=== PATIENT | male | born 1945 | race Caucasian/White ===

== ENCOUNTER 2021-04-19 08:52 | Outpatient (CLI) | payer MEDICARE | END 2021-04-19 08:53 | disposition home or self-care (01) | LOC: BICRAD 08:52 | PROVIDERS: ATTEND Internal Medicine Rheumatology | DX: M25.541 Pain in joints of right hand (principal); M19.041 Primary osteoarthritis, right hand ==

== ENCOUNTER 2021-06-14 07:05 | Outpatient (CLI) | payer MEDICARE | END 2021-06-14 07:06 | disposition home or self-care (01) | LOC: BICULT 07:05 | PROVIDERS: ATTEND Internal Medicine Nephrology | DX: I12.9 Hypertensive chronic kidney disease with stage 1 through stage 4 chronic kidney disease, or unspecified chronic kidney disease (principal); N18.30 Chronic kidney disease, stage 3 unspecified | CPT/HCPCS: 76770; 93975 ==

== ENCOUNTER 2022-09-29 13:20 | Outpatient (CLI) | payer MEDICARE ==
[2022-09-29 14:06] LABS: Bilirubin Neg (Negative); Blood, Urine Negative (Negative); Clarity Clear (Clear); Glucose, Urine (Dipstick) Normal (Negative); Ketone, Urine Negative (Negative); Leukocyte Negative (Negative); Nitrite Negative (Negative); Protein, Urine (Dipstick) Negative (Neg-Trace); Urobilinogen Normal mg/dL (Less than 2)
[2022-09-29 14:13] LABS: Hemoglobin 12.6 g/dL (13.5-17.5); Mean Corpuscular HGB CONC 32.5 g/dL (32.0-36.0); Mean Corpuscular Hemoglobin 31.8 pg (27.0-33.0); Mean Platelet Volume 10.4 fl (7.4-10.4); Platelet Count 203 10x3/uL (150-450); RBC Distribution Width 13.3 % (11.5-14.5); Red Blood Cell (RBC) Count 3.96 10x6/uL (4.32-5.72)
[2022-09-29 14:27] LABS: Bacteria/HPF None Seen HPF (None Seen); RBC/HPF 0-3 HPF (0-3); Squamous Epithelial None Seen HPF (0-3); WBC/HPF 0-3 HPF (0-3)
[2022-09-29 14:27] LABS: INR-International Normal Ratio 0.9; PTT 23.1 sec (22.0-33.0); Prothrombin Time 10.1 sec (9.5-12.1)
[2022-09-29 15:25] LABS: Anion Gap 13 mmol/L (10-20); BUN (Urea Nitrogen) 20 mg/dL (8.4-25.7); Calc. Creatinine Clearance 0 mL/min (70-130); Calcium 9.3 mg/dL (7.8-10.44); Carbon Dioxide 27 mmol/L (23-31); Chloride 107 mmol/L (98-107); Estimated GFR 46; Glucose 94 mg/dL (83-110); Potassium 4.1 mmol/L (3.5-5.1); Sodium 143 mmol/L (136-145)
== END 2022-09-29 13:21 | disposition home or self-care (01) ==
LOC: LABBT 13:20
PROVIDERS: ATTEND Urology
DX: Z01.818 Encounter for other preprocedural examination (principal); C61 Malignant neoplasm of prostate; N18.32 Chronic kidney disease, stage 3b; N40.1 Benign prostatic hyperplasia with lower urinary tract symptoms; N52.9 Male erectile dysfunction, unspecified; R39.14 Feeling of incomplete bladder emptying; Z92.3 Personal history of irradiation
CPT/HCPCS: 80048; 81001; 85027; 85610; 85730; 87086; 93005; 93010

== ENCOUNTER 2022-10-12 07:40 | Day surgery (SDC) | payer MEDICARE ==
[2022-10-10 12:54] VITALS: BMI 32.2
[2022-10-12] MEDS ORDERED: Levofloxacin 500 mg/D5W 100 ml Premix Bag ONE (08:59)
[2022-10-12] MEDS ORDERED: FENTANYL 50 MCG/ML 1 ML VIAL ONE (09:22)
[2022-10-12] MEDS ORDERED: Iopamidol 30 ML ONE (09:23)
[2022-10-12] MEDS ORDERED: Lidocaine 1% PF 5 ML VIAL ONE (09:52)
[2022-10-12] MEDS ORDERED: NEOSTIGMINE 3 MG/3 ML SYR 3 MG/3 ML SYRINGE ONE (09:52)
[2022-10-12] MEDS ORDERED: Ondansetron PF 4 MG/2 ML Vial ONE (09:52)
[2022-10-12] MEDS ORDERED: PROPOFOL 200 MG/20 ML VIAL ONE (09:52)
[2022-10-12] MEDS ORDERED: Phenylephrine 10 MG/ML VIAL ONE (09:52)
[2022-10-12] MEDS ORDERED: Rocuronium Bromide 10 MG/ML (10ML VIAL) ONE (09:52)
[2022-10-12] MEDS ORDERED: ePHEDrine Sulfate 50 MG/10 ML VIAL ONE (09:52)
[2022-10-12] MEDS ORDERED: GLYCOPYRROLATE/PF 0.2 MG/ML VIAL ONE (09:52)
[2022-10-12] MEDS ORDERED: Oxybutynin 5 MG TAB ONE (11:07)
[2022-10-12] MEDS ORDERED: Phenazopyridine HCl 100 MG TAB ONE ×2 (11:08→11:13)
== END 2022-10-12 12:45 | disposition home or self-care (01) ==
LOC: SDC 07:40
PROVIDERS: ATTEND Urology
PROC: 0T768DZ Dilation of Right Ureter with Intraluminal Device, Via Natural or Artificial Opening Endoscopic (ICD-10-PCS; principal; 2022-10-12)
PROC: 0TBB8ZZ Excision of Bladder, Via Natural or Artificial Opening Endoscopic (ICD-10-PCS; 2022-10-12)
DX: C67.2 Malignant neoplasm of lateral wall of bladder (principal); N40.1 Benign prostatic hyperplasia with lower urinary tract symptoms; R39.14 Feeling of incomplete bladder emptying; N13.8 Other obstructive and reflux uropathy; N32.89 Other specified disorders of bladder; I12.9 Hypertensive chronic kidney disease with stage 1 through stage 4 chronic kidney disease, or unspecified chronic kidney disease; N18.32 Chronic kidney disease, stage 3b; E03.9 Hypothyroidism, unspecified; E78.00 Pure hypercholesterolemia, unspecified; M10.9 Gout, unspecified; N52.9 Male erectile dysfunction, unspecified; E66.9 Obesity, unspecified; Z68.32 Body mass index [BMI] 32.0-32.9, adult; Z85.46 Personal history of malignant neoplasm of prostate; Z92.3 Personal history of irradiation; Z79.82 Long term (current) use of aspirin; Z79.890 Hormone replacement therapy; Z79.899 Other long term (current) drug therapy
CPT/HCPCS: 52235; 52332; 74420; 86850; 86900; 86901; J3010; 88305; A4311; C2617; J1956; J2370; J2405; J2704; J3490; Q9967

== ENCOUNTER 2023-02-14 11:50 | Outpatient (CLI) | payer MEDICARE ==
[2023-02-14 12:57] LABS: Bilirubin Neg (Negative); Blood, Urine 50 (Negative); Clarity Cloudy (Clear); Glucose, Urine (Dipstick) Normal (Negative); Ketone, Urine Negative (Negative); Leukocyte 500 (Negative); Nitrite Negative (Negative); Protein, Urine (Dipstick) 100 mg/dl (Neg-Trace); Urobilinogen Normal mg/dL (Less than 2)
[2023-02-14 13:10] LABS: Anion Gap 18 mmol/L (10-20); BUN (Urea Nitrogen) 20 mg/dL (8.4-25.7); Calc. Creatinine Clearance 0 mL/min (70-130); Calcium 9.5 mg/dL (7.8-10.44); Carbon Dioxide 25 mmol/L (23-31); Chloride 103 mmol/L (98-107); Estimated GFR 46; Glucose 97 mg/dL (83-110); Potassium 4.4 mmol/L (3.5-5.1); Sodium 142 mmol/L (136-145)
[2023-02-14 13:12] LABS: PTT 22.9 sec (22.0-33.0); Prothrombin Time 10.8 sec (9.5-12.1)
[2023-02-14 13:14] LABS: Hemoglobin 13.5 g/dL (13.5-17.5); Mean Corpuscular HGB CONC 32.5 g/dL (32.0-36.0); Mean Corpuscular Hemoglobin 31.3 pg (27.0-33.0); Mean Corpuscular Volume 96.3 fl (81.2-95.1); Mean Platelet Volume 10.5 fl (7.4-10.4); Platelet Count 204 10x3/uL (150-450); RBC Distribution Width 13.7 % (11.5-14.5); Red Blood Cell (RBC) Count 4.31 10x6/uL (4.32-5.72); White Blood Cell (WBC) Count 7.7 10x3/uL (3.5-10.5)
[2023-02-14 13:18] LABS: Bacteria/HPF 4+ HPF (None Seen); RBC/HPF 0-3 HPF (0-3); Squamous Epithelial 0-3 HPF (0-3); WBC/HPF Greater Than 50 HPF (0-3)
== END 2023-02-14 11:51 | disposition home or self-care (01) ==
LOC: LABBT 11:50
PROVIDERS: ATTEND Urology
DX: Z01.818 Encounter for other preprocedural examination (principal); C67.9 Malignant neoplasm of bladder, unspecified
CPT/HCPCS: 80048; 81001; 85027; 85610; 85730; 87077; 87086; 87186; 93005; 93010

== ENCOUNTER 2023-03-01 05:45 | Day surgery (SDC) | payer MEDICARE ==
[2023-02-14 12:22] VITALS: BMI 31.6
[2023-03-01] MEDS ORDERED: LevoFLOXacin 500 mg/D5W 100 ML BAG ONE (06:44)
[2023-03-01] MEDS ORDERED: Dexmedetomidine 200 MCG/2 ML VIAL ONE (06:45)
[2023-03-01] MEDS ORDERED: fentaNYL PF 100 MCG/2 ML SYRINGE ONE (06:45)
[2023-03-01] MEDS ORDERED: fentaNYL 50 mcg/mL 1 mL Vial ONE (06:45)
[2023-03-01] MEDS ORDERED: Ondansetron PF 4 MG/2 ML Vial ONE (07:30)
[2023-03-01] MEDS ORDERED: Glycopyrrolate 0.2 MG/ML 5 ML SYRINGE ONE (07:30)
[2023-03-01] MEDS ORDERED: Lidocaine 1% PF 5 ML VIAL ONE (07:30)
[2023-03-01] MEDS ORDERED: Rocuronium Bromide 10 MG/ML (10ML VIAL) ONE (07:30)
[2023-03-01] MEDS ORDERED: PROPOFOL 200 MG/20 ML VIAL ONE (07:30)
[2023-03-01] MEDS ORDERED: NEOSTIGMINE 3 MG/3 ML SYR 3 MG/3 ML SYRINGE ONE (07:30)
[2023-03-01] MEDS ORDERED: Dexamethasone 20 MG/5 ML VIAL ONE (07:30)
[2023-03-01] MEDS ORDERED: Iopamidol 30 ML ONE (08:49)
[2023-03-01] MEDS ORDERED: Oxybutynin 5 MG TAB ONE (09:14)
[2023-03-01] MEDS ORDERED: Phenazopyridine HCl 100 MG TAB ONE (09:14)
== END 2023-03-01 11:15 | disposition home or self-care (01) ==
LOC: SDC 05:45
PROVIDERS: ATTEND Urology
PROC: 0TBB8ZZ Excision of Bladder, Via Natural or Artificial Opening Endoscopic (ICD-10-PCS; principal; 2023-03-01)
PROC: 0TBB8ZX Excision of Bladder, Via Natural or Artificial Opening Endoscopic, Diagnostic (ICD-10-PCS; 2023-03-01)
PROC: 0T768ZZ Dilation of Right Ureter, Via Natural or Artificial Opening Endoscopic (ICD-10-PCS; 2023-03-01)
PROC: 0TH98YZ Insertion of Other Device into Ureter, Via Natural or Artificial Opening Endoscopic (ICD-10-PCS; 2023-03-01)
DX: N32.89 Other specified disorders of bladder (principal); N35.911 Unspecified urethral stricture, male, meatal; N13.5 Crossing vessel and stricture of ureter without hydronephrosis; N40.0 Benign prostatic hyperplasia without lower urinary tract symptoms
CPT/HCPCS: 52204; 52235; 52332; 52341; 74420; 86850; 86900; 86901; A4311; C1769; C2617; 36415; 88305; J1100; J1956; J2405; J2704; J3010; Q9967

== ENCOUNTER 2023-03-11 23:23 | Inpatient (IN) | payer MEDICARE ==
[2023-03-12 00:01] LABS: #Eosinphils 0.3 thou/uL (0.0-0.7); #Monocytes 0.7 thou/uL (0.11-0.59); #Neutrophils 6.4 thou/uL (1.40-6.50); %Basophils 0.5 % (0.0-1.0); %Eosinophils 3.3 % (0.0-10.0); %Lymphocytes 12.4 % (21.0-51.0); %Monocytes 7.7 % (0.0-10.0); %Neutrophils 75.7 % (42.0-75.0); Hematocrit 38.9 % (42.0-52.0); Hemoglobin 13.1 g/dL (14.0-18.0); Mean Corpuscular HGB CONC 33.7 g/dL (32.0-36.0); Mean Corpuscular Volume 95.1 fl (78.0-98.0); Mean Platelet Volume 10.1 fL (7.4-10.4); Platelet Count 147 10x3/uL (130-400); RBC Distribution Width 13.3 % (11.5-14.5); Red Blood Cell (RBC) Count 4.09 mill/uL (4.70-6.10); White Blood Cell (WBC) Count 8.5 10x3/uL (4.8-10.8)
[2023-03-12 00:26] LABS: ALT (SGPT) 15 U/L (8-55); AST (SGOT) 17 U/L (5-34); Albumin 3.9 g/dL (3.4-4.8); Alkaline Phosphatase 115 U/L (40-110); Anion Gap 16 mmol/L (10-20); BUN (Urea Nitrogen) 25 mg/dL (8.4-25.7); Bilirubin, Total 0.8 mg/dL (0.2-1.2); Calc. Creatinine Clearance 0 mL/min (70-130); Calcium 8.9 mg/dL (7.8-10.44); Carbon Dioxide 22 mmol/L (23-31); Chloride 108 mmol/L (98-107); Estimated GFR 44; Globulin 2.4 g/dL (2.4-3.5); Glucose 144 mg/dL (83-110); Potassium 3.8 mmol/L (3.5-5.1); Protein, Total 6.3 g/dL (5.8-8.1); Sodium 142 mmol/L (136-145)
[2023-03-12 00:34] LABS: Troponin I 0.252 ng/mL (< 0.028)
[2023-03-12] MEDS ORDERED: Aspirin Chewable 81 MG TAB ONE (00:50)
[2023-03-12 02:09] LABS: Bilirubin Negative (Negative); Blood, Urine 3+ (Negative); CAUTI Indications for Culture Alt mental st,lethar; Clarity Clear (Clear); Glucose, Urine (Dipstick) Normal (Negative); Ketone, Urine Negative (Negative); Leukocyte 75 Leu/uL (Negative); Nitrite Negative (Negative); Protein, Urine (Dipstick) 30 mg/dL (Neg-Trace); RBC/HPF Greater than 50 HPF (0-3); Specific Gravity, Urine 1.018 (1.002-1.036); Squamous Epithelial None Seen HPF (0-3); Urobilinogen Normal mg/dL (Less than 2)
[2023-03-12 02:10] LABS: Bacteria/HPF Rare-Few HPF (None Seen)
[2023-03-12 02:13] LABS: Urine Culture Reflex No No
[2023-03-12 04:35] LABS: Magnesium 1.7 mg/dL (1.6-2.6); Phosphorus 3.5 mg/dL (2.3-4.7)
[2023-03-12] MEDS ORDERED: Electrolyte Replacement Protocol 1 EACH FS SCH (05:00)
[2023-03-12 07:18] VITALS: BMI 31.6
[2023-03-12] MEDS ORDERED: Acetaminophen 325 MG TAB PO PRN (07:27)
[2023-03-12] MEDS ORDERED: HYDROcodone/Acetaminophen 5/325 mg Tablet PO PRN (07:28)
[2023-03-12] MEDS ORDERED: Ondansetron PF 4 MG/2 ML Vial IVP PRN (07:28)
[2023-03-12] MEDS: Levothyroxine Sodium 100 MCG TAB PO SCH (07:29)
[2023-03-12 07:40] LABS: PTT 35.8 sec (22.9-36.1)
[2023-03-12 07:48] LABS: INR-International Normal Ratio 1.1; Prothrombin Time 14.2 sec (12.0-14.7)
[2023-03-12] MEDS ORDERED: Magnesium 2 GM/50 ML(in water) 2 GM in Premix Bag 1 BAG IVPB SCH (08:00)
[2023-03-12 08:10] LABS: Troponin I 1.913 ng/mL (< 0.028)
[2023-03-12] MEDS: Allopurinol 300 MG TAB PO SCH (09:50)
[2023-03-12] MEDS: Pantoprazole 40 MG VIAL IVP SCH ×2 (09:50→21:25)
[2023-03-12] MEDS: Heparin 25,000 units/D5W 500 ML IV SCH (09:51)
[2023-03-12] MEDS ORDERED: Iopamidol-370 76% 500 ML MDV (1 ML CHARGE) ONE (10:05)
[2023-03-12 10:10] LABS: Hematocrit 36.3 % (42.0-52.0)
[2023-03-12] MEDS ORDERED: Heparin 10,000 UNITS/ 10 ML VIAL SLOW IVP SCH (14:00)
[2023-03-12 17:19] LABS: PTT Greater than 250.0 sec (22.9-36.1)
[2023-03-12 18:26] LABS: Hemoglobin 13.1 g/dL (14.0-18.0)
[2023-03-12 19:40] LABS: PTT 173.5 sec (22.9-36.1)
[2023-03-12] MEDS: Tamsulosin HCl 0.4 MG CAP PO SCH (21:24)
[2023-03-12] MEDS: Atorvastatin Calcium 40 MG TAB PO SCH (21:25)
[2023-03-13] MEDS: Heparin 25,000 units/D5W 500 ML IV SCH (03:36)
[2023-03-13 05:08] LABS: #Basophils 0.1 thou/uL (0.0-0.2); #Eosinphils 0.5 thou/uL (0.0-0.7); #Monocytes 0.7 thou/uL (0.11-0.59); #Neutrophils 4.7 thou/uL (1.40-6.50); %Basophils 0.7 % (0.0-1.0); %Eosinophils 7.2 % (0.0-10.0); %Monocytes 9.5 % (0.0-10.0); %Neutrophils 66.3 % (42.0-75.0); Hematocrit 36.6 % (42.0-52.0); Hemoglobin 11.9 g/dL (14.0-18.0); Mean Corpuscular HGB CONC 32.5 g/dL (32.0-36.0); Mean Corpuscular Hemoglobin 31.2 pg (27.0-31.0); Mean Corpuscular Volume 96.1 fl (78.0-98.0); Mean Platelet Volume 10.2 fL (7.4-10.4); Platelet Count 141 10x3/uL (130-400); RBC Distribution Width 13.6 % (11.5-14.5); Red Blood Cell (RBC) Count 3.81 mill/uL (4.70-6.10); White Blood Cell (WBC) Count 7.1 10x3/uL (4.8-10.8)
[2023-03-13 05:31] LABS: PTT 179.3 sec (22.9-36.1)
[2023-03-13] MEDS: Levothyroxine Sodium 100 MCG TAB PO SCH (05:35)
[2023-03-13 05:40] LABS: ALT (SGPT) 15 U/L (8-55); AST (SGOT) 20 U/L (5-34); Albumin 3.5 g/dL (3.4-4.8); Alkaline Phosphatase 97 U/L (40-110); Anion Gap 9 mmol/L (10-20); BUN (Urea Nitrogen) 19 mg/dL (8.4-25.7); Calc. Creatinine Clearance 69 mL/min (70-130); Calcium 9.2 mg/dL (7.8-10.44); Carbon Dioxide 26 mmol/L (23-31); Chloride 107 mmol/L (98-107); Estimated GFR 47; Globulin 2.6 g/dL (2.4-3.5); Glucose 106 mg/dL (83-110); Potassium 4.3 mmol/L (3.5-5.1); Protein, Total 6.1 g/dL (5.8-8.1); Sodium 138 mmol/L (136-145)
[2023-03-13] MEDS: Pantoprazole 40 MG VIAL IVP SCH ×2 (08:16→20:37)
[2023-03-13] MEDS: Allopurinol 300 MG TAB PO SCH (08:16)
[2023-03-13] MEDS ORDERED: Iopamidol 370 76% 100 ML VIAL ONE (09:12)
[2023-03-13] MEDS ORDERED: Apixaban 5 MG TAB PO SCH ×2 (10:14→10:30)
[2023-03-13] MEDS ORDERED: Lidocaine 1% (PF) 30 ML VIAL ONE (11:43)
[2023-03-13] MEDS: Atorvastatin Calcium 40 MG TAB PO SCH (20:37)
[2023-03-13] MEDS: Apixaban 5 MG TAB PO SCH (20:37)
[2023-03-13] MEDS: Tamsulosin HCl 0.4 MG CAP PO SCH (20:37)
[2023-03-14] MEDS: Levothyroxine Sodium 100 MCG TAB PO SCH (05:55)
[2023-03-14 06:28] LABS: #Eosinphils 0.4 thou/uL (0.0-0.7); #Monocytes 0.7 thou/uL (0.11-0.59); #Neutrophils 4.8 thou/uL (1.40-6.50); %Basophils 0.6 % (0.0-1.0); %Eosinophils 5.2 % (0.0-10.0); %Lymphocytes 18.3 % (21.0-51.0); %Monocytes 9.1 % (0.0-10.0); %Neutrophils 66.5 % (42.0-75.0); Hematocrit 38.1 % (42.0-52.0); Hemoglobin 12.3 g/dL (14.0-18.0); Mean Corpuscular HGB CONC 32.3 g/dL (32.0-36.0); Mean Corpuscular Hemoglobin 31.2 pg (27.0-31.0); Mean Corpuscular Volume 96.7 fl (78.0-98.0); Platelet Count 147 10x3/uL (130-400); RBC Distribution Width 13.2 % (11.5-14.5); Red Blood Cell (RBC) Count 3.94 mill/uL (4.70-6.10); White Blood Cell (WBC) Count 7.1 10x3/uL (4.8-10.8)
[2023-03-14 06:49] LABS: Anion Gap 13 mmol/L (10-20); BUN (Urea Nitrogen) 19 mg/dL (8.4-25.7); Calc. Creatinine Clearance 65 mL/min (70-130); Calcium 9.1 mg/dL (7.8-10.44); Carbon Dioxide 23 mmol/L (23-31); Chloride 107 mmol/L (98-107); Estimated GFR 43; Glucose 92 mg/dL (83-110); Potassium 4.5 mmol/L (3.5-5.1); Sodium 138 mmol/L (136-145)
[2023-03-14] MEDS: Allopurinol 300 MG TAB PO SCH (09:42)
[2023-03-14] MEDS: Apixaban 5 MG TAB PO SCH ×2 (09:42→20:25)
[2023-03-14] MEDS: Pantoprazole 40 MG VIAL IVP SCH ×2 (09:42→20:24)
[2023-03-14 15:37] VITALS: BP 137/85
[2023-03-14] MEDS: Tamsulosin HCl 0.4 MG CAP PO SCH (20:24)
[2023-03-14] MEDS: Atorvastatin Calcium 40 MG TAB PO SCH (20:25)
[2023-03-15 04:26] LABS: #Eosinphils 0.4 thou/uL (0.0-0.7); #Monocytes 0.7 thou/uL (0.11-0.59); #Neutrophils 5.2 thou/uL (1.40-6.50); %Basophils 0.5 % (0.0-1.0); %Eosinophils 5.9 % (0.0-10.0); %Lymphocytes 13.9 % (21.0-51.0); %Monocytes 9.9 % (0.0-10.0); %Neutrophils 69.5 % (42.0-75.0); Hematocrit 36.2 % (42.0-52.0); Hemoglobin 12.1 g/dL (14.0-18.0); Mean Corpuscular HGB CONC 33.4 g/dL (32.0-36.0); Mean Corpuscular Hemoglobin 30.9 pg (27.0-31.0); Platelet Count 147 10x3/uL (130-400); RBC Distribution Width 13.2 % (11.5-14.5); Red Blood Cell (RBC) Count 3.91 mill/uL (4.70-6.10); White Blood Cell (WBC) Count 7.5 10x3/uL (4.8-10.8)
[2023-03-15 04:46] LABS: Mean Corpuscular Volume 92.6 fl (78.0-98.0)
[2023-03-15 04:53] LABS: Anion Gap 13 mmol/L (10-20); BUN (Urea Nitrogen) 19 mg/dL (8.4-25.7); Calc. Creatinine Clearance 73 mL/min (70-130); Carbon Dioxide 21 mmol/L (23-31); Chloride 108 mmol/L (98-107); Potassium 3.6 mmol/L (3.5-5.1); Sodium 138 mmol/L (136-145)
[2023-03-15 04:54] LABS: Estimated GFR 50; Glucose 93 mg/dL (83-110)
[2023-03-15] MEDS: Levothyroxine Sodium 100 MCG TAB PO SCH (04:59)
[2023-03-15] MEDS: Allopurinol 300 MG TAB PO SCH (09:29)
[2023-03-15] MEDS: Apixaban 5 MG TAB PO SCH (09:29)
[2023-03-15] MEDS: Pantoprazole 40 MG VIAL IVP SCH (09:29)
[2023-03-15 12:00] VITALS: TEMP 97
== END 2023-03-15 16:19 | disposition home or self-care (01) | DRG 175 ==
LOC: ERS 23:23 → ERHOLD 03-12 03:43 → IMCU/EMU 03-12 06:37
PROVIDERS: ADMIT Internal Medicine; ATTEND Family Medicine
PROC: 0T9B70Z Drainage of Bladder with Drainage Device, Via Natural or Artificial Opening (ICD-10-PCS; principal; 2023-03-12)
PROC: 06H03DZ Insertion of Intraluminal Device into Inferior Vena Cava, Percutaneous Approach (ICD-10-PCS; 2023-03-13)
DX: I26.99 Other pulmonary embolism without acute cor pulmonale (principal); I21.A1 Myocardial infarction type 2; J96.01 Acute respiratory failure with hypoxia; E87.20 Acidosis, unspecified; N17.9 Acute kidney failure, unspecified; I82.403 Acute embolism and thrombosis of unspecified deep veins of lower extremity, bilateral; D68.59 Other primary thrombophilia; I10 Essential (primary) hypertension; E78.00 Pure hypercholesterolemia, unspecified; E03.9 Hypothyroidism, unspecified; M10.9 Gout, unspecified; N40.0 Benign prostatic hyperplasia without lower urinary tract symptoms; K21.9 Gastro-esophageal reflux disease without esophagitis; C61 Malignant neoplasm of prostate; I12.9 Hypertensive chronic kidney disease with stage 1 through stage 4 chronic kidney disease, or unspecified chronic kidney disease; N18.30 Chronic kidney disease, stage 3 unspecified; C67.9 Malignant neoplasm of bladder, unspecified; Z79.82 Long term (current) use of aspirin; Z79.899 Other long term (current) drug therapy; Z98.890 Other specified postprocedural states; Z80.0 Family history of malignant neoplasm of digestive organs
CPT/HCPCS: 36415; 36416; 37191; 71275; 80048; 80053; 81001; 83735; 83880; 84100; 84484; 85014; 85018; 85025; 85610; 85730; 93005; 93010; 93306; 93970; 94760; C1769; C1880; C1894; C9113; J1644; J1650; J2001; J3475; Q9967

== ENCOUNTER 2023-04-05 12:44 | Outpatient (CLI) | payer MEDICARE | END 2023-04-05 12:45 | disposition home or self-care (01) | LOC: ULT 12:44 | PROVIDERS: ATTEND Urology | DX: C61 Malignant neoplasm of prostate (principal); C67.9 Malignant neoplasm of bladder, unspecified; N40.1 Benign prostatic hyperplasia with lower urinary tract symptoms; N13.5 Crossing vessel and stricture of ureter without hydronephrosis; N18.32 Chronic kidney disease, stage 3b; Z79.01 Long term (current) use of anticoagulants | CPT/HCPCS: 76770 ==

== ENCOUNTER 2023-05-30 16:06 | Outpatient (CLI) | payer MEDICARE | END 2023-05-30 16:07 | disposition home or self-care (01) | LOC: ULT 16:06 | PROVIDERS: ATTEND Urology | DX: N18.32 Chronic kidney disease, stage 3b (principal); C67.9 Malignant neoplasm of bladder, unspecified; C61 Malignant neoplasm of prostate; N40.1 Benign prostatic hyperplasia with lower urinary tract symptoms; N13.5 Crossing vessel and stricture of ureter without hydronephrosis; N28.1 Cyst of kidney, acquired; N28.89 Other specified disorders of kidney and ureter; Z92.3 Personal history of irradiation | CPT/HCPCS: 76770 ==

== ENCOUNTER 2023-06-16 08:52 | Outpatient (CLI) | payer MEDICARE | END 2023-06-16 08:53 | disposition home or self-care (01) | LOC: RAD 08:52 | PROVIDERS: ATTEND Internal Medicine Critical Care Medicine | DX: R06.00 Dyspnea, unspecified (principal) | CPT/HCPCS: 71046 ==

== ENCOUNTER 2023-08-14 07:55 | Outpatient (CLI) | payer MEDICARE ==
[2023-08-14] MEDS ORDERED: Iopamidol 370 76% 100 ML VIAL ONE (08:27)
== END 2023-08-14 07:56 | disposition home or self-care (01) ==
LOC: BICCT 07:55
PROVIDERS: ATTEND Urology
DX: C61 Malignant neoplasm of prostate (principal); C67.9 Malignant neoplasm of bladder, unspecified; N28.1 Cyst of kidney, acquired; K57.30 Diverticulosis of large intestine without perforation or abscess without bleeding; K44.9 Diaphragmatic hernia without obstruction or gangrene; N13.30 Unspecified hydronephrosis; N28.82 Megaloureter; Z79.01 Long term (current) use of anticoagulants
CPT/HCPCS: 74178

== ENCOUNTER 2023-09-14 11:15 | Outpatient (CLI) | payer MEDICARE ==
[2023-09-14 13:14] LABS: Bilirubin Neg (Negative); Blood, Urine 150 (Negative); Clarity Clear (Clear); Glucose, Urine (Dipstick) Normal (Negative); Ketone, Urine Negative (Negative); Leukocyte Negative (Negative); Nitrite Negative (Negative); Protein, Urine (Dipstick) Negative (Neg-Trace); Urobilinogen Normal mg/dL (Less than 2)
[2023-09-14 13:20] LABS: Hematocrit 39.3 % (38.8-50.0); Hemoglobin 12.7 g/dL (13.5-17.5); Mean Corpuscular HGB CONC 32.3 g/dL (32.0-36.0); Mean Corpuscular Hemoglobin 31.7 pg (27.0-33.0); Mean Platelet Volume 10.3 fl (7.4-10.4); Platelet Count 193 10x3/uL (150-450); RBC Distribution Width 13.7 % (11.5-14.5); Red Blood Cell (RBC) Count 4.01 10x6/uL (4.32-5.72); White Blood Cell (WBC) Count 5.4 10x3/uL (3.5-10.5)
[2023-09-14 13:24] LABS: PTT 26.6 sec (22.0-33.0); Prothrombin Time 10.9 sec (9.5-12.1)
[2023-09-14 13:53] LABS: Anion Gap 14 mmol/L (10-20); BUN (Urea Nitrogen) 27 mg/dL (8.4-25.7); Calc. Creatinine Clearance 0 mL/min (70-130); Calcium 9.1 mg/dL (7.8-10.44); Carbon Dioxide 25 mmol/L (23-31); Chloride 110 mmol/L (98-107); Estimated GFR 42; Glucose 87 mg/dL (83-110); Potassium 4.4 mmol/L (3.5-5.1); Sodium 145 mmol/L (136-145)
[2023-09-14 14:51] LABS: Bacteria/HPF None Seen HPF (None Seen); Squamous Epithelial 0-3 HPF (0-3); WBC/HPF None Seen HPF (0-3)
== END 2023-09-14 11:16 | disposition home or self-care (01) ==
LOC: LABBT 11:15
PROVIDERS: ATTEND Urology
DX: Z01.818 Encounter for other preprocedural examination (principal); C67.9 Malignant neoplasm of bladder, unspecified; C61 Malignant neoplasm of prostate; N40.1 Benign prostatic hyperplasia with lower urinary tract symptoms; N18.32 Chronic kidney disease, stage 3b; I26.99 Other pulmonary embolism without acute cor pulmonale; I82.499 Acute embolism and thrombosis of other specified deep vein of unspecified lower extremity; N52.9 Male erectile dysfunction, unspecified; N13.30 Unspecified hydronephrosis; Z79.01 Long term (current) use of anticoagulants; Z92.3 Personal history of irradiation
CPT/HCPCS: 80048; 81001; 85027; 85610; 85730; 86850; 86900; 86901; 87077; 87086; 93005; 93010

== ENCOUNTER 2023-09-20 06:41 | Day surgery (SDC) | payer MEDICARE ==
[2023-09-14 12:14] VITALS: BMI 32.2
[2023-09-20] MEDS ORDERED: LevoFLOXacin D5W 500 mg (100 mL) BAG ONE (07:18)
[2023-09-20] MEDS ORDERED: Ampicillin 2 GM VIAL ONE (07:18)
[2023-09-20] MEDS ORDERED: Sodium Chloride 0.9% 100 ML ONE (07:18)
[2023-09-20 08:06] LABS: Prothrombin Time 13.4 sec (12.0-14.7)
[2023-09-20 08:07] LABS: PTT 26.9 sec (22.9-36.1)
[2023-09-20] MEDS ORDERED: Iopamidol 30 ML ONE (08:08)
[2023-09-20] MEDS ORDERED: fentaNYL PF 100 MCG/2 ML SYRINGE ONE (08:15)
[2023-09-20] MEDS ORDERED: Lidocaine 2% PF 5 ML VIAL ONE (08:16)
[2023-09-20] MEDS ORDERED: PROPOFOL 20 ML ONE (08:16)
[2023-09-20] MEDS ORDERED: Rocuronium Bromide 10 MG/ML (10ML VIAL) ONE (08:22)
[2023-09-20] MEDS ORDERED: Lidocaine 1% (PF) 30 ML VIAL ONE (08:27)
[2023-09-20] MEDS ORDERED: Furosemide 20 MG (2 mL) VIAL ONE (08:41)
[2023-09-20] MEDS ORDERED: Ondansetron PF 4 MG/2 ML Vial ONE (08:44)
[2023-09-20] MEDS ORDERED: SUGAMMADEX SODIUM 200 MG/2 ML VIAL ONE (09:28)
[2023-09-20] MEDS ORDERED: Phenazopyridine HCl 100 MG TAB ONE (10:22)
== END 2023-09-20 13:28 | disposition home or self-care (01) ==
LOC: SDC 06:41
PROVIDERS: ATTEND Urology
PROC: 0TBB8ZX Excision of Bladder, Via Natural or Artificial Opening Endoscopic, Diagnostic (ICD-10-PCS; principal; 2023-09-20)
PROC: 0T768ZZ Dilation of Right Ureter, Via Natural or Artificial Opening Endoscopic (ICD-10-PCS; 2023-09-20)
PROC: 0TH98YZ Insertion of Other Device into Ureter, Via Natural or Artificial Opening Endoscopic (ICD-10-PCS; 2023-09-20)
PROC: 06PY0DZ Removal of Intraluminal Device from Lower Vein, Open Approach (ICD-10-PCS; 2023-09-20)
DX: N32.89 Other specified disorders of bladder (principal); N13.1 Hydronephrosis with ureteral stricture, not elsewhere classified; N40.1 Benign prostatic hyperplasia with lower urinary tract symptoms; N13.8 Other obstructive and reflux uropathy; Z45.89 Encounter for adjustment and management of other implanted devices; C61 Malignant neoplasm of prostate; I12.9 Hypertensive chronic kidney disease with stage 1 through stage 4 chronic kidney disease, or unspecified chronic kidney disease; N18.32 Chronic kidney disease, stage 3b; E78.5 Hyperlipidemia, unspecified; E03.9 Hypothyroidism, unspecified; Z79.01 Long term (current) use of anticoagulants; Z86.711 Personal history of pulmonary embolism; Z86.718 Personal history of other venous thrombosis and embolism; Z79.899 Other long term (current) drug therapy; Z79.890 Hormone replacement therapy
CPT/HCPCS: 37193; 52204; 52332; 52341; 74420; 85610; 85730; C1769; C1773; C1894 ×2; C2617; 88305; J0290; J1940; J1956; J2001; J2405; J2704; J3490; Q9967

== ENCOUNTER 2023-12-07 08:19 | Outpatient (CLI) | payer MEDICARE | END 2023-12-07 08:20 | disposition home or self-care (01) | LOC: BICULT 08:19 | PROVIDERS: ATTEND Urology | DX: C61 Malignant neoplasm of prostate (principal); C67.9 Malignant neoplasm of bladder, unspecified; N18.32 Chronic kidney disease, stage 3b; N13.30 Unspecified hydronephrosis; N13.5 Crossing vessel and stricture of ureter without hydronephrosis; N28.1 Cyst of kidney, acquired; N28.9 Disorder of kidney and ureter, unspecified; Z92.3 Personal history of irradiation; Z79.01 Long term (current) use of anticoagulants | CPT/HCPCS: 76770 ==

== ENCOUNTER 2024-06-05 06:59 | Outpatient (CLI) | payer MEDICARE | END 2024-06-05 07:00 | disposition home or self-care (01) | LOC: BICULT 06:59 | PROVIDERS: ATTEND Urology | DX: C61 Malignant neoplasm of prostate (principal); C67.9 Malignant neoplasm of bladder, unspecified; N40.1 Benign prostatic hyperplasia with lower urinary tract symptoms; N28.1 Cyst of kidney, acquired | CPT/HCPCS: 76770 ==

== ENCOUNTER 2024-08-27 08:52 | Outpatient (CLI) | payer MEDICARE ==
[2024-08-27] MEDS ORDERED: Iopamidol 370 76% 100 ML VIAL ONE (11:30)
== END 2024-08-27 08:53 | disposition home or self-care (01) ==
LOC: CT 08:52
PROVIDERS: ATTEND Urology
DX: C67.9 Malignant neoplasm of bladder, unspecified (principal)
CPT/HCPCS: 36415; 74178; 82565